=== PATIENT | female | born 1985 ===

== ENCOUNTER 2019-02-03 18:16 | Emergency (ER) | payer SELFPAY ==
[2019-02-03] MEDS ORDERED: Ondansetron 4 MG/2 ML SDV IV ONE (19:13)
[2019-02-03] MEDS ORDERED: Sodium Chloride 0.9% 1,000 ML IV ONE (19:13)
[2019-02-03] MEDS ORDERED: Ketorolac 30 MG/ML SDV IVPUSH ONE (19:13)
--- NOTE | 2019-02-03 19:13 | EDM.PDOC ---
ED HPI GENERAL MEDICAL PROBLEM - General Chief Complaint: Back Pain or Injury Stated Complaint: NECK, BACK PAIN, TEMP Time Seen by Provider: 02/03/19 19:08 Source of Information: Reports: Patient History Limitations: Reports: No Limitations - History of Present Illness INITIAL COMMENTS - FREE TEXT/NARRATIVE: onset back pain Thurs then Fri got worse with [place] and photophobic denies h/o migraines, yesterday felt feverish and nauseous, not better today no appetite. denies recent injury of back. denies . Neck Pain Score (Numeric/FACES): 8 - Related Data Allergies Allergy/AdvReac Type Severity Reaction Status Date / Time Penicillins Allergy Rash Verified 02/03/19 18:30 Home Meds: Home Meds FLUoxetine HCl [Fluoxetine HCl] 40 mg PO DAILY 02/03/19 [History] Gabapentin [Neurontin] 100 mg PO DAILY 02/03/19 [History] Gabapentin [Neurontin] 300 mg PO DAILY 02/03/19 [History] LORazepam 0.5 mg PO ASDIRECTED PRN 02/03/19 [History] Past Medical History Musculoskeletal History: Reports: Other (See Below) Other Musculoskeletal History: scoliosis Psychiatric History: Reports: Anxiety - Past Surgical History Musculoskeletal Surgical History: Reports: Other (See Below) Other Musculoskeletal Surgeries/Procedures:: back surgery x4 Social & Family History - Tobacco Use Smoking Status *Q: Current Some Day Smoker Years of Tobacco use: 10 Packs/Tins Daily: 0.1 Second Hand Smoke Exposure: Yes - Recreational Drug Use Recreational Drug Use: No ED ROS GENERAL - Review of Systems Review Of Systems: ROS reveals no pertinent complaints other than HPI. ED EXAM,LOWER BACK PAIN/INJURY - Physical Exam Exam: See Below Exam Limited By: No Limitations General Appearance: Alert, WD/WN, Other (crying) Eye Exam: Bilateral Eye: PERRL (pupils ER @ 4mm photophobic) Throat/Mouth: Normal Voice, No Airway Compromise Head: Atraumatic Neck: Non-Tender, Full Range of Motion Respiratory/Chest: No Respiratory Distress Cardiovascular: Regular Rate, Rhythm GI/Abdominal: Soft, Non-Tender Neurological: Alert, No Motor/Sensory Deficits, Oriented x 3 Psychiatric: Tearful Skin Exam: Warm, Dry, Normal Color Lymphatic: No Adenopathy Course - Vital Signs Last Recorded V/S: Last Vital Signs Temp 36.3 C 02/03/19 18:26 Pulse 99 02/03/19 18:26 Resp 18 02/03/19 18:26 BP 100/56 L 02/03/19 18:26 Pulse Ox 99 02/03/19 18:26 - Orders/Labs/Meds Orders: Active Orders 24 hr Category Date Time Status CULTURE BLOOD [BC] Stat Lab 02/03/19 19:25 Received Labs: Laboratory Tests 02/03/19 02/03/19 02/03/19 Range/Units 19:25 19:25 19:25 WBC 5.0 (5.0-10.0) 10^3/uL RBC 4.10 L (4.2-5.4) 10^6/uL Hgb 12.3 (12.0-16.0) g/dL Hct 36.3 L (37.0-47.0) % MCV 88.5 (80-100) fL MCH 30.0 (27.0-34.0) pg MCHC 33.9 (33.0-35.0) g/dL Plt Count 163 (150-450) 10^3/uL Neut % (Auto) 70.3 (42.2-75.2) % Lymph % (Auto) 19.5 L (20.5-50.1) % [place] % (Auto) 9.8 H (2-8) % Eos % (Auto) 0.2 L (1.0-3.0) % Baso % (Auto) 0.2 (0.0-1.0) % Sodium 133 L (135-145) mmol/L Potassium 3.2 L (3.6-5.0) mmol/L Chloride 101 (101-111) mmol/L Carbon Dioxide 22.0 (21.0-31.0) mmol/L Anion Gap 13.2 BUN 11 (7-18) mg/dL Creatinine 0.7 (0.6-1.3) mg/dL Est Cr Clr Drug Dosing 91.25 mL/min Estimated GFR (MDRD) > 60 BUN/Creatinine Ratio 15.71 Glucose 131 H (74-105) mg/dL Lactic Acid 1.4 (0.5-2.2) mmol/L Calcium 8.8 (8.4-10.2) mg/dl Total Bilirubin 0.6 (0.2-1.0) mg/dL AST 28 (10-42) IU/L ALT 17 (10-60) IU/L Alkaline Phosphatase 45 (42-121) IU/L Total Protein 6.5 L (6.7-8.2) g/dl Albumin 3.6 (3.2-5.5) g/dl Globulin 2.9 Albumin/Globulin Ratio 1.24 HCG, Qual Negative Meds: Medications Discontinued Medications Generic Name Dose Route Start Last Admin Trade Name Sai PRN Reason Stop Dose Admin Fentanyl 50 mcg 02/03/19 20:37 02/03/19 20:44 Sublimaze IVPUSH 02/03/19 20:38 50 mcg ONETIME ONE Administration Sodium Chloride 1,000 mls @ 999 mls/hr 02/03/19 19:13 02/03/19 19:34 Normal Saline IV 02/03/19 20:13 999 mls/hr .BOLUS ONE Administration Ketorolac Tromethamine 30 mg 02/03/19 19:13 02/03/19 19:34 Toradol IVPUSH 02/03/19 19:14 30 mg ONETIME ONE Administration Ondansetron HCl 4 mg 02/03/19 19:13 02/03/19 19:35 Zofran IV 02/03/19 19:14 4 mg ONETIME ONE Administration - Re-Assessments/Exams Free Text/Narrative Re-Assessment/Exam: 02/03/19 19:58 re-exam; s/p toradol = '0' 02/03/19 20:38 results discussed with pt who states she goes to [facility]. Departure - Departure Time of Disposition: 21:10 Disposition: Home, Self-Care 01 Condition: Good Clinical Impression: History of spinal fusion for scoliosis Migraine Qualifiers: Migraine type: unspecified Status migrainosus presence: without status migrainosus Intractability: not intractable Qualified Code(s): G43.909 - Migraine, unspecified, not intractable, without status migrainosus - Discharge Information Instructions: Migraine Headache, [id number] Forms: ED Department Discharge Additional Instructions: 1) rest 2) see family doctor tomorrow for MRI SCAN OF HEAD 3) recheck if there is any change or concern - My Orders Last 24 Hours: My Active Orders 02/03/19 19:25 CULTURE BLOOD [BC] Stat - Assessment/Plan Last 24 Hours: My Active Orders 02/03/19 19:25 CULTURE BLOOD [BC] Stat
[2019-02-03 19:50] LABS: ANION GAP 13.2; CHLORIDE,CL 101 mmol/L (101-111); SODIUM,NA 133 mmol/L (135-145)
[2019-02-03] MEDS ORDERED: fentaNYL 100 MCG/2 ML SDV IVPUSH ONE (20:37)
== END 2019-02-03 21:12 | disposition home or self-care (01) ==
LOC: DL.ED 18:16
DX: G43.909 Migraine, unspecified, not intractable, without status migrainosus (principal); F17.210 Nicotine dependence, cigarettes, uncomplicated; Z88.0 Allergy status to penicillin; Z79.899 Other long term (current) drug therapy; Z98.1 Arthrodesis status
CPT/HCPCS: 36415; 70450; 80053; 83605; 84703; 85025; 87040; 96361; 96374; 96375; 99284; J1885; J2405; J3010; J7030